=== PATIENT | male | born 1960 | race African-American/Black ===

== ENCOUNTER 2023-01-02 17:24 | Emergency (ER) | payer MEDICAID ==
[~2023-01-02] VITALS: Ht 180.3 cm; Wt 79.5 kg
[2023-01-02 17:26] VITALS: BP 132/77; PULSE 76; RESP 18; TEMP 98.8
[2023-01-02] MEDS ORDERED: LISI-894 PO (17:29)
[2023-01-02] MEDS ORDERED: BICT1TAB PO (17:29)
[2023-01-02] MEDS ORDERED: FURO20 PO (17:29)
[2023-01-02] MEDS ORDERED: DIPH50CA37 PO (19:01)
[2023-01-02] MEDS ORDERED: IBUP-1554 PO (19:01)
[2023-01-02] MEDS ORDERED: CLOB15CR10 TP (19:01)
== END 2023-01-02 19:10 | disposition home or self-care (01) ==
LOC: EMS 17:27
DX: S40.862A Insect bite (nonvenomous) of left upper arm, initial encounter (principal); S40.861A Insect bite (nonvenomous) of right upper arm, initial encounter; F32.A Depression, unspecified; I10 Essential (primary) hypertension; F17.210 Nicotine dependence, cigarettes, uncomplicated; W57.XXXA Bitten or stung by nonvenomous insect and other nonvenomous arthropods, initial encounter; Y93.89 Activity, other specified; Y92.89 Other specified places as the place of occurrence of the external cause; Y99.8 Other external cause status
CPT/HCPCS: 99283; Z7502